=== PATIENT | female | born 1975 | race Caucasian/White ===

== ENCOUNTER 2024-05-25 12:46 | Outpatient (REF) | payer BC, SELFPAY ==
[2024-05-25 19:38] LABS: Anion Gap 3.4 mmol/L (3-11); BUN 15 mg/dL (7-18); CO2 32.6 mmol/L (21.0-32.0); CREATININE 0.8 mg/dL (0.55-1.02); Calcium 9.1 mg/dL (8.5-10.1); Chloride 105 mmol/L (98-107); Estimated GFR 91.97 (mL/min/1.73m2); Glucose 98 mg/dL (74-106); Potassium 4.3 mmol/L (3.5-5.1); Sodium 141 mmol/L (136-145)
[2024-05-25 19:49] LABS: Hemoglobin A1C 5.3 % (<5.7)
== END 2024-05-25 12:47 | disposition home or self-care (01) ==
LOC: NCHCN 12:46
PROVIDERS: PCP Nurse Practitioner Family; Visit Provider Nurse Practitioner Family
DX: R73.9 Hyperglycemia, unspecified (principal); E87.6 Hypokalemia
CPT/HCPCS: 80048; 83036